=== PATIENT | female | born 1950 | race Caucasian/White ===

== ENCOUNTER 2021-01-17 13:39 | Emergency (ER) | payer SELFPAY ==
[2021-01-17 13:56] VITALS: BP 201/81; PULSE 65; RESP 16; TEMP 36.9; O2SAT 98
--- NOTE | 2021-01-17 16:02 | DI.RAD.S_ITS ---
PROCEDURE: XR ABDOMEN 1V INDICATIONS: check for small bowel obstruction TECHNIQUE: One view of the abdomen acquired. COMPARISON: None. FINDINGS: Surgical changes and devices: None. Bowel: Bowel gas pattern is normal. There is diffuse moderate stool Soft tissues: No suspicious abdominal calcifications however suboptimal evaluation secondary to diffuse stool Visualized solid organ contours appear normal in size. Bones: No suspicious bony lesions. IMPRESSION: No specific evidence of bowel obstruction seen at this time although if the patient's symptoms do not improve, continued surveillance with abdominal series radiographs could be performed. Dictated by: Chun Ponce M.D. on 01/17/2021 at 16:28 Approved by: Chun Ponce M.D. on 01/17/2021 at 16:29
[2021-01-17 16:07] LABS: Add Manual Diff / Slide Review NO; Basophils Absolute Auto 200 /uL (0-100); Eosinophils Absolute Auto 0 /uL (0-450); Eosinophils Percent Auto 0.2 % (2-4); Hematocrit 39.4 % (36-46); Hemoglobin 13.3 g/dL (12.0-16.0); Lymphocytes Absolute Auto 2000 /uL (1100-4500); Lymphocytes Percent Auto 12.6 % (25-40); Mean Corpuscular HGB Conc 33.7 % (30-36); Mean Corpuscular Hemoglobin 28.7 PG (26-34); Mean Corpuscular Volume 85.1 fL (80-100); Monocytes Absolute Auto 1100 /uL (0-900); Monocytes Percent Auto 6.7 % (3-14); Neutrophils Absolute Auto 12800 /uL (1500-7000); Neutrophils Percent Auto 79.5 % (50-75); Platelet Count 209 X10^3/uL (150-400); Red Blood Cell Count 4.63 X10^6/uL (4.0-5.2); Red Cell Distribution Width 13.3 % (11.6-14.8); White Blood Cell Count 16.1 X10^3/uL (4.5-11.0)
[2021-01-17 16:12] LABS: INR 1.1 (0.9-1.3); Prothrombin Time 12.5 SECONDS (10.1-12.7)
[2021-01-17 16:14] LABS: PTT Partial Thromboplastin Tim 32 SECONDS (26.4-36.2)
[2021-01-17 16:17] LABS: Alanine Aminotransferase 27 IU/L (<35); Albumin 4.5 g/dL (3.5-5.0); Albumin Globulin Ratio 1.3 (1.0-2.8); Alkaline Phosphatase 110 U/L (38-126); Aspartate Aminotransferase 37 IU/L (14-36); BUN Creatinine Ratio 28.3 (6-22); Bilirubin Total 0.5 mg/dL (0.2-1.3); Blood Urea Nitrogen 17 mg/dL (7-17); Calcium 10.4 mg/dL (8.4-10.2); Carbon Dioxide 30 mmol/L (22-32); Chloride 98 mmol/L (98-107); Estimated Glomerular Filt Rate > 60.0 mL/min (>60); Globulin 3.4 g/dL (1.7-4.1); Glucose 140 mg/dL (80-110); HEMOLYSIS < 15 (0-50); Lipase 70 U/L (23-300); Potassium 4.4 mmol/L (3.4-5.1); Sodium 136 mmol/L (137-145); Total Protein 7.9 g/dL (6.3-8.2)
--- NOTE | 2021-01-17 16:27 | PC.NURSE ---
Patient states she just went and urinated and it was bloody and foamy. She reports back pain and nausea have disappeared at this time.
--- NOTE | 2021-01-17 16:27 | PC.NURSE ---
Patient denies history of kidney stones, however my sister gets them all the time.
[2021-01-17 16:40] VITALS: PULSE 70; O2SAT 96
[2021-01-17 16:44] LABS: Bacteria Urine Few (2-10); Culture Indicated Urine Specimen Cultured; RBC Urine 30-100/HPF (0-5/HPF); Squamous Epithelial Cell Urine 1-5 /HPF (0-5/HPF); WBC Urine 5-10/HPF (0-5/HPF)
[2021-01-17] MEDS: SODIUM CHLORIDE 0.9% 1,000 ML 1000 ML IV (16:45)
--- NOTE | 2021-01-17 16:48 | ED_ITS ---
HPI - General Adult General Chief complaint: Abdominal Pain Stated complaint: dehydrated, nausea, vomiting Time Seen by Provider: 01/17/21 16:38 Source: patient Mode of arrival: Ambulatory Limitations: no limitations History of Present Illness HPI narrative: Patient is a 70-year-old female here for evaluation of what she thinks is being dehydrated, nausea and vomiting, right-sided abdominal pain and concern for constipation. She states she has been on pain medication for rotator cuff injury. Upon further evaluation this does not appear to be opioid medications. She states that pain in her right back/right flank started this morning has been consistent throughout the day. Prior to my evaluation she urinated here in the emergency department she states the symptoms completely resolved. She also has had some nausea this morning secondary to the pain. Yesterday had urinary frequency and hesitancy. She has never had a kidney stone before. She has had multiple abdominal surgeries to include cholecystectomy and hysterectomy. She has not any fevers. No recent travel. At the time my evaluation patient states she is completely asymptomatic except for feeling ill dehydrated Related Data Home Medications Medication Instructions Recorded Confirmed amitriptyline 50 mg PO BID 01/17/21 01/17/21 amlodipine 5 mg PO DAILY 01/17/21 01/17/21 atenolol 50 mg PO DAILY 01/17/21 01/17/21 levothyroxine 125 mcg PO DAILY 01/17/21 01/17/21 metformin 1,000 mg PO BID 01/17/21 01/17/21 rosuvastatin 5 mg PO DAILY 01/17/21 01/17/21 trandolapril 4 mg PO DAILY 01/17/21 01/17/21 Previous Rx's Medication Instructions Recorded ondansetron 4 mg PO Q6H PRN #14 tab 01/17/21 Allergies Allergy/AdvReac Type Severity Reaction Status Date / Time codeine AdvReac Mild Vomiting Verified 01/17/21 14:01 prednisone AdvReac Mild Verified 01/17/21 14:00 Review of Systems Constitutional Constitutional: Denies fever(s) and Denies headache(s) ENT Ears, Nose, Mouth, and Throat: Denies vertigo, Denies headache(s) and Denies disequilibrium Cardiovascular Cardiovascular: Denies chest pain and Denies dyspnea Respiratory Respiratory: Denies dyspnea Gastrointestinal Gastrointestinal: Reports abdominal pain, Reports constipation, Reports nausea and Reports vomiting Genitourinary Genitourinary: Reports urinary hesitancy and Reports urinary urgency Genitourinary: Reports urinary hesitancy and Reports urinary urgency Musculoskeletal Musculoskeletal: Denies arthralgias and Denies myalgias Integumentary/Breasts Skin/Breast: Denies lesions and Denies rash Neurologic Neurologic: Denies vertigo, Denies headache(s) and Denies disequilibrium Hematologic/Lymphatic On Anticoagulants: No Allergic/Immunologic Allergic/Immunologic: Denies urticaria Patient History Medical History Diabetes Hypertension Hypothyroid Social History Smoking Status: Former smoker Smoking Status: Former smoker alcohol intake frequency: other Substance Use Type: marijuana Exam Initial Vital Signs Initial Vital Signs: Vital Signs Temperature 98.4 F 01/17/21 13:56 Pulse Rate 65 01/17/21 13:56 Respiratory Rate 16 01/17/21 13:56 Blood Pressure 201/81 H 01/17/21 13:56 Pulse Oximetry 98 01/17/21 13:56 Const General: cooperative and comfortable Limitations: mental status not altered [facility] Head: normal to inspection and normocephalic Resp Effort & Inspection: normal respiratory effort Auscultation: clear to auscultation bilaterally Cardio Rate: regular rate Rhythm: regular rhythm GI Inspection: non-distended Palpation: soft, No firm and No tender Skin Lesions: no lesions Rashes: no rashes Neuro General: patient alert and patient awake Cognition: normal cognition Speech: speech normal Extrem General: normal to inspection and capillary refill normal Psych Appearance: grossly normal and well kempt Course Orders Ordered: ED Orders 01/17/21 15:55 Complete Blood Count AUTO DIFF Stat Comprehensive Metabolic Panel Stat Lipase Stat Partial Thromboplastin Time Stat Prothrombin Time INR Stat 01/17/21 16:02 XR abdomen 1V Stat 01/17/21 16:15 Urine Culture Stat Urine Microscopic Stat Discontinued Medications Sodium Chloride (Normal Saline 0.9%) 1,000 mls @ 1,000 mls/hr IV BOLUS ONE Stop: 01/17/21 18:05 Last Infusion: 01/17/21 17:53 Dose: 0 mls/hr Documented by: Admin: 01/17/21 16:45 Dose: 1,000 mls/hr Documented by: PARVEZ Vital Signs Vital signs: Vital Signs - 8 hr 01/17/21 13:56 01/17/21 16:40 01/17/21 17:00 Temperature 98.4 F Pulse Rate 65 70 64 Respiratory Rate 16 Blood Pressure 201/81 H Pulse Oximetry 98 96 97 01/17/21 17:01 01/17/21 17:30 01/17/21 18:22 Temperature Pulse Rate 68 60 72 Respiratory Rate 14 Blood Pressure 172/72 H 170/79 H Pulse Oximetry 97 98 98 Medical Decision Making Lab Data Lab results reviewed: Yes I reviewed the patient's lab results. Result diagrams: 01/17/21 15:55 01/17/21 15:55 Labs: Lab Results 01/17/21 01/17/21 01/17/21 Range/Units 15:55 15:55 15:55 WBC 16.1 H (4.5-11.0) X10^3/uL RBC 4.63 (4.0-5.2) X10^6/uL Hgb 13.3 (12.0-16.0) g/dL Hct 39.4 (36-46) % MCV 85.1 (80-100) fL MCH 28.7 (26-34) PG MCHC 33.7 (30-36) % RDW 13.3 (11.6-14.8) % Plt Count 209 (150-400) X10^3/uL Neut % (Auto) 79.5 H (50-75) % Lymph % (Auto) 12.6 L (25-40) % [place] % (Auto) 6.7 (3-14) % Eos % (Auto) 0.2 L (2-4) % Baso % (Auto) 1.0 (0-2) % Neut # (Auto) 96368 H (4400-8741) /uL Lymph # (Auto) 2000 (4541-8883) /uL [place] # (Auto) 1100 H (0-900) /uL Eos # (Auto) 0 (0-450) /uL Baso # (Auto) 200 H (0-100) /uL PT 12.5 (10.1-12.7) SECONDS INR 1.1 (0.9-1.3) APTT 32 (26.4-36.2) SECONDS Sodium 136 L (137-145) mmol/L Potassium 4.4 (3.4-5.1) mmol/L Chloride 98 (98-107) mmol/L Carbon Dioxide 30 (22-32) mmol/L BUN 17 (7-17) mg/dL Creatinine 0.60 (0.52-1.04) mg/dL Estimated GFR > 60.0 (>60) mL/min BUN/Creatinine Ratio 28.3 H (6-22) Glucose 140 H (80-110) mg/dL Calcium 10.4 H (8.4-10.2) mg/dL Total Bilirubin 0.5 (0.2-1.3) mg/dL AST 37 H (14-36) IU/L ALT 27 (<35) IU/L Alkaline Phosphatase 110 (38-126) U/L Total Protein 7.9 (6.3-8.2) g/dL Albumin 4.5 (3.5-5.0) g/dL Globulin 3.4 (1.7-4.1) g/dL Albumin/Globulin Ratio 1.3 (1.0-2.8) Lipase 70 (23-300) U/L Urine RBC (0-5/HPF) Urine WBC (0-5/HPF) Ur Squamous Epith Cells (0-5/HPF) Urine Bacteria (None) Ur Culture Indicated? 01/17/21 Range/Units 16:15 WBC (4.5-11.0) X10^3/uL RBC (4.0-5.2) X10^6/uL Hgb (12.0-16.0) g/dL Hct (36-46) % MCV (80-100) fL MCH (26-34) PG MCHC (30-36) % RDW (11.6-14.8) % Plt Count (150-400) X10^3/uL Neut % (Auto) (50-75) % Lymph % (Auto) (25-40) % [place] % (Auto) (3-14) % Eos % (Auto) (2-4) % Baso % (Auto) (0-2) % Neut # (Auto) (2813-6437) /uL Lymph # (Auto) (7630-4291) /uL [place] # (Auto) (0-900) /uL Eos # (Auto) (0-450) /uL Baso # (Auto) (0-100) /uL PT (10.1-12.7) SECONDS INR (0.9-1.3) APTT (26.4-36.2) SECONDS Sodium (137-145) mmol/L Potassium (3.4-5.1) mmol/L Chloride (98-107) mmol/L Carbon Dioxide (22-32) mmol/L BUN (7-17) mg/dL Creatinine (0.52-1.04) mg/dL Estimated GFR (>60) mL/min BUN/Creatinine Ratio (6-22) Glucose (80-110) mg/dL Calcium (8.4-10.2) mg/dL Total Bilirubin (0.2-1.3) mg/dL AST (14-36) IU/L ALT (<35) IU/L Alkaline Phosphatase (38-126) U/L Total Protein (6.3-8.2) g/dL Albumin (3.5-5.0) g/dL Globulin (1.7-4.1) g/dL Albumin/Globulin Ratio (1.0-2.8) Lipase (23-300) U/L Urine RBC 30-100/hpf H (0-5/HPF) Urine WBC 5-10/hpf H (0-5/HPF) Ur Squamous Epith Cells 1-5 /hpf (0-5/HPF) Urine Bacteria Few (2-10) H (None) Ur Culture Indicated? Specimen cultured Urine Dip Bedside Urine Glucose Negative Bedside Urine Bilirubin - Negative Bedside Urine Ketone - Negative Urine Specific [place] 1.010 Bedside Urine Occult Blood +++ Bedside Urine pH 6.0 Bedside Urine Protein +/- 15 Bedside Urine Urobilinogen - Negative Bedside Urine Nitrite - Negative Bedside Urine Leukocytes - Negative Esterase Point of care testing: Urine Dip Bedside Urine Glucose Negative Bedside Urine Bilirubin - Negative Bedside Urine Ketone - Negative Urine Specific [place] 1.010 Bedside Urine Occult Blood +++ Bedside Urine pH 6.0 Bedside Urine Protein +/- 15 Bedside Urine Urobilinogen - Negative Bedside Urine Nitrite - Negative Bedside Urine Leukocytes - Negative Esterase MDM Narrative Medical decision making narrative: At the time of my exam patient is completely asymptomatic. She does have hematuria and had right-sided pain that resolved after she urinated here in the emergency department. Her symptoms today are consistent with right-sided renal colic however she has never had a kidney stone in the past. She does have a leukocytosis. She is not having any urinary symptoms currently. She has had multiple abdominal surgeries but she no longer has any abdominal pain in her abdomen is soft. I did discuss with her further workup to include a CT scan. We discussed the risks and benefits of doing the CT scan and also holding on the CT scan. After this decision the plan will be as to not perform any further abdominal radiologic studies. She is not having any urinary symptoms. A urine culture was pending at the time of discharge. We will contact her if we need to start any antibiotics. She was given return precautions and follow-up instructions. She expressed understanding and agreement. Discharge Plan Departure Patient Disposition: Home Clinical Impression: Abdominal pain Instructions: DI for Abdominal Pain-Adult Activity Restrictions/Additional Instructions: Recommend that you increase your fluid intake like we discussed. Contact your primary provider for a follow-up. Return to the emergency department for any new or worsening symptoms Prescriptions: New ondansetron 4 mg tablet,disintegrating 4 mg PO Q6H PRN (Reason: nausea and vomiting) Qty: 14 RF: 0 No Action trandolapril 4 mg Tablet 4 mg PO DAILY RF: 0 amlodipine 5 mg Tablet 5 mg PO DAILY RF: 0 amitriptyline 50 mg Tablet 50 mg PO BID RF: 0 metformin 1,000 mg Tablet 1,000 mg PO BID RF: 0 levothyroxine 125 mcg Tablet 125 mcg PO DAILY RF: 0 atenolol 50 mg Tablet 50 mg PO DAILY RF: 0 rosuvastatin 5 mg Tablet 5 mg PO DAILY RF: 0
[2021-01-17 17:00] VITALS: PULSE 64; O2SAT 97
[2021-01-17 17:01] VITALS: BP 172/72; PULSE 68; O2SAT 97
[2021-01-17 17:30] VITALS: PULSE 60; O2SAT 98
[2021-01-17 18:22] VITALS: BP 170/79; PULSE 72; RESP 14; O2SAT 98
== END 2021-01-17 18:23 | disposition home or self-care (01) ==
PROVIDERS: Emergency Provider Emergency Medicine
DX: R10.9 Unspecified abdominal pain (principal); K59.00 Constipation, unspecified; R39.15 Urgency of urination; R11.2 Nausea with vomiting, unspecified
CPT/HCPCS: 36415; 74018; 80053; 81003; 81015; 83690; 85025; 85610; 85730; 87086; 96360; 99281; 99284